=== PATIENT | female | born 1985 | race Caucasian/White ===

== ENCOUNTER 2019-08-24 14:27 | Emergency (ER) | payer SELFPAY ==
[~2019-08-24] VITALS: Ht 154.9 cm; Wt 59.0 kg
--- NOTE | 2019-08-24 16:24 | RAD ---
Examination: VENOUS LOWER EXTREMITY LEFT History: Left leg pain. Lump involving the thigh for the past 3 days. Comparison/Correlation: None FINDINGS: Left lower extremity duplex venous ultrasound exam was performed. Grayscale, color Doppler, and spectral Doppler imaging was performed. Compression and augmentation was performed. The left common femoral vein, superficial femoral vein, popliteal vein, and greater saphenous vein are normal with no evidence of deep venous thrombus. Normal compressibility and augmentation is evident. The visualized left calf veins are unremarkable. Incidental note is made of a 2 cm x 1.4 cm x 1.8 cm hyperechoic lesion with a central hypoechogenic center measuring 0.9 cm in maximum diameter. This is at the distal thigh and may be within subcutaneous fat. IMPRESSION: Hyperechogenic lesion involving the distal left thigh superficially at the site of reported palpable abnormality. This may represent a sebaceous cyst. Alternatively, an atypical lipoma may account for this finding. Consider further evaluation with MRI examination without contrast for more definitive assessment. No evidence of deep venous thrombus involving the left lower extremity. Electronically signed by: Marvin Mayo MD (08/24/2019 4:21 PM) [facility]
--- NOTE | 2019-08-24 16:40 | PHYS DOC ---
Past History Past Medical History: No Pertinent History Past Surgical History: No Surgical History Alcohol Use: None Drug Use: None Adult General Chief Complaint Chief Complaint: LOWEREXTREMITY INJURY HPI HPI Patient is a 34 year old F who presents with left leg pain with a nodule. She noted this several days ago. She feels that the nodules increasing in size. She has a history of varicose veins. She has no other associated symptoms. She has no other exacerbating or relieving factors. Review of Systems Review of Systems Constitutional: Denies fever or chills [] Eyes: Denies change in visual acuity, redness, or eye pain [] HENT: Denies nasal congestion or sore throat [] Respiratory: Denies cough or shortness of breath [] Cardiovascular: No additional information not addressed in HPI [] GI: Denies abdominal pain, nausea, vomiting, bloody stools or diarrhea [] : Denies dysuria or hematuria [] Musculoskeletal: Denies back pain or joint pain [] Integument: Negative except history of present illness Neurologic: Denies headache, focal weakness or sensory changes [] Endocrine: Denies polyuria or polydipsia [] All other systems were reviewed and found to be within normal limits, except as documented in this note. Family History Family History No pertinent family medical history was reported Current Medications Current Medications Current medications reviewed Allergies Allergies Allergies Coded Allergies Type Severity Reaction Last Updated Verified codeine Allergy Unknown 08/24/19 Yes Physical Exam Physical Exam Constitutional: Well developed, well nourished, no acute distress, non-toxic appearance. [] HENT: Normocephalic, atraumatic, Eyes: EOMI, conjunctiva normal, no discharge. [] Neck: Normal range of motion, no tenderness, supple, no stridor. [] Cardiovascular:Heart rate regular rhythm, Lungs & Thorax: Bilateral breath sounds clear to auscultation [] Abdomen: Bowel sounds normal, soft, no tenderness, no masses, no pulsatile masses. [] Skin: Warm, dry, no erythema, no rash. [] Small palpable nodule on the medial left thigh without erythema. This nodule was mobile. Extremities: No tenderness, no cyanosis, no clubbing, ROM intact, no edema. [] Neurologic: Alert and oriented X 3, normal motor function, normal sensory function, no focal deficits noted. [] Psychologic: Affect normal, judgement normal, mood normal. [] Current Patient Data Vital Signs Vital Signs Date Time Temp Pulse Resp B/P (MAP) Pulse Ox O2 Delivery O2 Flow Rate FiO2 08/24/19 14:30 98.1 74 16 100 Room Air EKG EKG [] Radiology/Procedures Radiology/Procedures [] Impressions: Examination: VENOUS LOWER EXTREMITY LEFT History: Left leg pain. Lump involving the thigh for the past 3 days. Comparison/Correlation: None FINDINGS: Left lower extremity duplex venous ultrasound exam was performed. Grayscale, color Doppler, and spectral Doppler imaging was performed. Compression and augmentation was performed. The left common femoral vein, superficial femoral vein, popliteal vein, and greater saphenous vein are normal with no evidence of deep venous thrombus. Normal compressibility and augmentation is evident. The visualized left calf veins are unremarkable. Incidental note is made of a 2 cm x 1.4 cm x 1.8 cm hyperechoic lesion with a central hypoechogenic center measuring 0.9 cm in maximum diameter. This is at the distal thigh and may be within subcutaneous fat. IMPRESSION: Hyperechogenic lesion involving the distal left thigh superficially at the site of reported palpable abnormality. This may represent a sebaceous cyst. Alternatively, an atypical lipoma may account for this finding. Consider further evaluation with MRI examination without contrast for more definitive assessment. No evidence of deep venous thrombus involving the left lower extremity. Course & Med Decision Making Course & Med Decision Making Pertinent Labs and Imaging studies reviewed. (See chart for details) [] Dragon Disclaimer Dragon Disclaimer This electronic medical record was generated, in whole or in part, using a voice recognition dictation system. Departure Departure: Impression: Primary Impression: Sebaceous cyst Disposition: HOME, SELF-CARE Condition: STABLE Referrals: PCP,NO (PCP) Patient Instructions: Medical Screening Exam Additional Instructions: Radha seen in the emergency department for leg pain. No emergency medical condition was found on history of physical exam. She did have a normal ultrasound of her leg to rule out a deep vein thrombosis or clot. She was found to have signs and symptoms most consistent with a sebaceous cyst. This condition is not concerning unless infection develops. Education was provided. She was advised follow-up with her primary care doctor as needed for further management. DENISE DOWNS MD Aug 24, 2019 16:40
[2019-08-24 16:52] VITALS: BP 118/66
== END 2019-08-24 16:55 | disposition home or self-care (01) ==
LOC: ER 14:27
DX: L72.3 Sebaceous cyst (principal); Z86.79 Personal history of other diseases of the circulatory system; Z88.5 Allergy status to narcotic agent
CPT/HCPCS: 93971; 99284-25